=== PATIENT | female | born 1980 | race Caucasian/White ===

== ENCOUNTER 2018-04-17 02:18 | Emergency (ER) | payer BC, MEDICAID ==
[~2018-04-17] VITALS: Ht 160 cm; Wt 72.6 kg
--- NOTE | 2018-04-17 02:18 | NUR ---
PATIENT AMBULATED TO ER BED 7.
[2018-04-17 02:22] VITALS: BP 123/76
--- NOTE | 2018-04-17 02:25 | NUR ---
PT PRESENTED ER WITH C/O PAIN TO THE RIGHT FLANK REGION X 3 DAYS. PT HAS PAIN OF 10/10. A/O X 4. PT FAMILY AT BEDSIDE. KNA. DENIES N/V/D; NO FEVER AT THIS TIME.SKIN IS PINK/WARM/DRY;EVEN AND STEADY GAIT; LUNGS CLEAR BL; HR EVEN AND REGULAR; PATIENT POSITIONED FOR COMFORT; HOB ELEVATED; BEDRAILS UP X2; BED DOWN. ER MD MADE AWARE OF PT STATUS.
[2018-04-17] MEDS ORDERED: NACL 0.9% 1,000 ML IV SCH (02:28)
[2018-04-17] MEDS ORDERED: KETOROLAC 30 MG/ML VIAL IVP ONE (02:30)
[2018-04-17 03:06] LABS: ANION GAP 12.6 (8-16); CARBON DIOXIDE 26.2 mmol/L (21-32); CREATININE 0.8 mg/dL (0.6-1.3); POTASSIUM 3.8 mmol/L (3.5-5.1)
[2018-04-17 03:11] LABS: ALBUMIN 3.9 g/dL (3.4-5.0); TOTAL BILIRUBIN 0.3 mg/dL (0.0-1.0)
--- NOTE | 2018-04-17 03:26 | NUR ---
PT WENT TO CT
[2018-04-17 03:29] LABS: BASOPHILS # (AUTO) 0.1 K/uL (0.00-0.22); BASOPHILS % (AUTO) 0.8 % (0.0-2.0); EOSINOPHILS # (AUTO) 0.1 K/uL (0-0.4); EOSINOPHILS % (AUTO) 1.1 % (0.0-4.0); HEMATOCRIT 36.2 % (36-48); HEMOGLOBIN 11.7 g/dL (12.0-16.0); LYMPHOCYTES # (AUTO) 3.3 K/uL (2.5-16.5); LYMPHOCYTES % (AUTO) 36.1 % (20.5-51.1); MEAN CORPUSCULAR HEMOGLOBIN 28 pg (27-31); MEAN CORPUSCULAR HGB CONC 32 g/dL (33-37); MEAN CORPUSCULAR VOLUME 87.1 fL (80-94); MONOCYTES # (AUTO) 0.6 K/uL (0.8-1.0); MONOCYTES % (AUTO) 6.3 % (1.7-9.3); NEUTROPHILS # (AUTO) 5.1 K/uL (1.8-7.7); NEUTROPHILS % (AUTO) 55.7 % (42.2-75.2); PLATELET COUNT (AUTO) 275 K/uL (140-450); RED BLOOD CELL COUNT(AUTO) 4.15 MIL/uL (4.20-5.40); RED CELL DISTRIBUTION WIDTH 14.2 % (11.6-13.7); WHITE BLOOD COUNT (AUTO) 9.1 K/uL (4.8-10.8)
[2018-04-17 04:20] LABS: BILIRUBIN,URINE NEGATIVE (NEGATIVE); BLOOD, URINE 2+ (NEGATIVE); COLOR,URINE YELLOW (YELLOW); LEUKOCYTE ESTERASE ,URINE 1+ (NEGATIVE); NITRITE, URINE NEGATIVE (NEGATIVE); PH,URINE 5.5 (5.0-9.0); UGLUCOSE NEGATIVE (NEGATIVE)
[2018-04-17 04:26] LABS: APPEARANCE,URINE SLIGHTLY HAZY (CLEAR)
[2018-04-17 04:28] LABS: RBC,URINE 20-50 /HPF (0-5)
--- NOTE | 2018-04-17 04:28 | NUR ---
PT SLEEPING, VITALS STABLE. FAMILY AT BEDSIDE.
[2018-04-17 05:08] VITALS: BP 112/70
--- NOTE | 2018-04-17 05:08 | NUR ---
Patient discharged with v/s stable. Written and verbal after care instructions given and explained. Patient alert, oriented and verbalized understanding of instructions. Ambulatory with steady gait. All questions addressed prior to discharge. ID band removed. Patient advised to follow up with PMD. Rx of FLOMAX AND ULTRAM was given. Patient educated on indication of medication including possible reaction and side effects. Opportunity to ask questions provided and answered.
== END 2018-04-17 05:08 | disposition home or self-care (01) ==
LOC: MED 02:18
DX: N20.0 Calculus of kidney (principal); Z87.442 Personal history of urinary calculi
CPT/HCPCS: 36415; 74176; 80053; 81001; 83690; 84703; 85025; 87086; 96374; 99284; J1885

== ENCOUNTER 2020-03-15 17:28 | Emergency (ER) | payer SELFPAY ==
[~2020-03-15] VITALS: Ht 160 cm; Wt 81.6 kg
[2020-03-15 17:31] VITALS: BP 153/98
--- NOTE | 2020-03-15 17:52 | NUR ---
Patient being evaluated by Dr. David at bedside.
[2020-03-15] MEDS ORDERED: cephALEXin 500 MG CAP PO ONE (17:55)
[2020-03-15] MEDS ORDERED: PHENAZOPYRIDINE 100 MG TAB PO ONE (17:55)
--- NOTE | 2020-03-15 17:55 | NUR ---
PT C/O HEMATURIA, FREQUENCY, URGENCY, AND BURNING SENSATION OF URINATION, DYSURIA SINCE YESTERDAY, PAIGE FLANK TENDERNESS RADIATING TO SUPRAPUBIC AREA SINCE THIS MORNING WITH 8/10 PAIN. OTHERWISE, PT DENIES FEVER, CHILLS, N/V/D, COUGH, FEVER. MILD CVAT PAIGE ON PERCUSSION.
[2020-03-15 18:15] VITALS: BP 128/85
--- NOTE | 2020-03-15 18:15 | NUR ---
Patient discharged with v/s stable. Written and verbal after care instructions given and explained. Patient alert, oriented and verbalized understanding of instructions. Ambulatory with steady gait. All questions addressed prior to discharge. ID band removed. Patient advised to follow up with PMD. Rx of Keflex and Pyridium given. Patient educated on indication of medication including possible reaction and side effects. Opportunity to ask questions provided and answered.
== END 2020-03-15 18:15 | disposition home or self-care (01) ==
LOC: MED 17:28
DX: N12 Tubulo-interstitial nephritis, not specified as acute or chronic (principal)
CPT/HCPCS: 81002; 81025; 99283